=== PATIENT | female | born 1980 | race Two or more races ===

== ENCOUNTER → 2020-01-23 | Outpatient (CLI) | payer OTHER ==
--- NOTE | 2020-02-19 09:04 | REP ---
BILATERAL MAMMOGRAM WITH 3D TOMOSYNTHESIS, DIAGNOSTIC MAMMOGRAM RIGHT BREAST, AND RIGHT BREAST ULTRASOUND HISTORY: Palpable lump, right breast, for about one week. Family history of breast cancer in maternal aunt at age 40. [facility] lifetime risk of breast cancer 17.4%. TECHNIQUE: ML and CC views of both breast performed with 3D tomosynthesis. Additional spot compression views of the right breast are performed for a palpable lump, which is marked on the skin with a triangular marker. FINDINGS: Moderately dense heterogeneous fibroglandular tissue is seen bilaterally. There is a round well-defined nodule in the upper inner right breast about 7-8 cm from the nipple. No other mass is seen. No clustered microcalcifications are seen. Real-time sonographic evaluation of the right breast performed in the region of 12 o'clock at the site of the palpable lump and also in the upper inner aspect at the site of the nodule on the mammogram. At 12 o'clock in the region of the palpable lump two cysts are seen adjacent to one another, measuring 7 x 7 x 4 mm and 9 x 8 x 6 mm. In the upper inner aspect of the right breast approximately 7 cm from the nipple is an 8 mm cyst corresponding to the mammographic abnormality. [place] breast density is C. IMPRESSION: ACR 2 benign. Moderately dense breast parenchyma bilaterally somewhat limits the sensitivity of mammogram. The mammogram shows a round well-defined nodule in the upper inner right breast. Ultrasound at this location demonstrates that this is a cyst, which is benign. In addition, at the site of the palpable lump at 12 o'clock there are two adjacent benign cysts. No suspicious mammographic or sonographic abnormalities are seen. Recommend follow-up mammogram in one year. This mammogram was interpreted with the aid of an FDA approved computer-aided detection system. The patient states her most recent clinical breast exam is January 2020. Patient letter 2. MTDD
== END ==
LOC: M WHC 10:33
PROVIDERS: ATTEND Nurse Practitioner Adult Health
DX: N63.12 Unspecified lump in the right breast, upper inner quadrant (principal)
CPT/HCPCS: 76642; 77066; G0279